=== PATIENT | male | born 1970 | race Two or more races ===

== ENCOUNTER 2020-12-20 15:01 | Inpatient (IN) | payer MEDICAID, OTHER ==
[~2020-12-20] VITALS: Ht 165.1 cm; Wt 77.6 kg
[2020-12-20 15:44] LABS: Basophils # (auto) 0.1 10 ^3/uL (0-0.2); Basophils % (auto) 0.9 % (0.0-2.0); Eosinophils # (auto) 0.1 10 ^3/uL (0-0.8); Eosinophils % (auto) 1.5 % (0.0-7.0); Hematocrit 46.9 % (41.0-53.0); Hemoglobin 16.5 g/dL (13.5-17.5); Lymphocytes # (auto) 2.1 10 ^3/uL (0.4-5.4); Lymphocytes % (auto) 23.6 % (10.0-50.0); Mean Corpuscular Hemoglobin 31.6 pg (28.0-32.0); Mean Corpuscular Hgb Conc. 35.1 g/dL (32.0-36.0); Monocytes # (auto) 0.7 10 ^3/uL (0-1.3); Monocytes % (auto) 7.6 % (0.0-12.0); Neutrophils # (auto) 5.8 10 ^3/uL (1.6-8.6); Neutrophils % (auto) 66.4 % (37.0-80.0); Nucleated Red Blood Cells % 0.1 %; Platelet Count (auto) 208 10^3/uL (140-450); Red Blood Cells 5.22 10^6/uL (4.5-5.90); Red Cell Distribution Width 14.7 % (11.8-14.3); White Blood Cell 8.7 10^3/uL (4.4-10.8)
[2020-12-20 15:55] LABS: Albumin 4.3 g/dL (3.4-5.0); Anion Gap 13 (5-15); Blood Alcohol < 3.0 mg/dL (0-5); Blood Urea Nitrogen 14 mg/dL (7-18); Calcium 9.7 mg/dL (8.5-10.1); Carbon Dioxide 22 mmol/L (21-32); Chloride 99 mmol/L (98-107); Glucose 291 mg/dL (74-106); Potassium 3.5 mmol/L (3.5-5.1); Sodium 134 mmol/L (136-145)
[2020-12-20 15:58] LABS: Alanine Aminotransferase 27 U/L (16-61); Alkaline Phosphatase 97 U/L (45-117); Aspartate Aminotransferase 25 U/L (15-37); BUN/Creatinine Ratio 16.9; Bilirubin, Total 0.8 mg/dL (0.2-1.0); GFR African American 125 mL/min; GFR Non-African American 103 mL/min; Total Protein 8.3 g/dL (6.4-8.2)
[2020-12-20 17:11] LABS: Urine Bacteria NONE SEEN /hpf (None Seen); Urine Blood Negative /uL (Negative); Urine Specific Gravity 1.011 (1.001-1.035); Urine WBC 1 /hpf (0 - 3)
[2020-12-20] MEDS ORDERED: SODIUM CHLORIDE 0.9% 1,000 ML IV ONE (17:30)
[2020-12-20 17:40] LABS: Amphetamine Screen, Urine POSITIVE (NEGATIVE); Barbiturate Scree,Urine NEGATIVE (NEGATIVE); Benzodiazephine Screen, Urine NEGATIVE (NEGATIVE); Cannabinoid Screen, Urine POSITIVE (NEGATIVE); Cocaine Screen, Urine NEGATIVE (NEGATIVE); Opiate Scree,Urine NEGATIVE (NEGATIVE); Phencyclidine Screen, Urine NEGATIVE (NEGATIVE)
[2020-12-20 18:00] LABS: Lactic Acid w/Reflex 3.7 mmol/L (0.4-2.0)
[2020-12-20] MEDS ORDERED: NITROGLYCERIN 0.4 MG SL TAB SL PRN (22:15)
[2020-12-20] MEDS ORDERED: MORPHINE SULF INJ 2 MG/ML SYRINGE 1ML IV PRN (22:15)
[2020-12-20] MEDS ORDERED: ONDANSETRON HCL 4 MG/2 ML VIAL IV PRN (22:15)
[2020-12-20] MEDS ORDERED: ACETAMINOPHEN 325 MG TAB PO PRN (22:15)
[2020-12-20] MEDS ORDERED: diphenhdrAMINE HCL 50 MG/1 ML VL IV PRN (22:15)
[2020-12-20] MEDS ORDERED: DOCUSATE SOD 100 MG CAP PO PRN (22:15)
[2020-12-20] MEDS ORDERED: MORPHINE SULFATE 4 MG/ML SYR/VIAL IV PRN (22:15)
[2020-12-20] MEDS ORDERED: hydrALAZINE HCL 20 MG/ML VL IV PRN (22:15)
[2020-12-20] MEDS ORDERED: DEXTROSE (50%) 50ML SYRG IV PRN (22:15)
[2020-12-20] MEDS ORDERED: HYDROcodone-ACET 5/325MG TAB PO PRN (22:15)
[2020-12-20] MEDS ORDERED: methylPREDNISolone SOD SUCC 40 MG/ML VL ONE (22:42)
[2020-12-20] MEDS: SODIUM CHLORIDE 0.9% 1,000 ML IV SCH (22:50)
[2020-12-21] MEDS: ACCU-CHEK COMFORT CURVE STRIP VI SCH ×4 (00:04→12:26)
[2020-12-21] MEDS: InsuLIN REG 1unit/0.01ml Soln (100units/ml) SC SCH ×4 (00:04→12:33)
[2020-12-21 00:40] VITALS: BP 116/78
[2020-12-21] MEDS ORDERED: METF-370 PO (01:04)
[2020-12-21 05:00] VITALS: BP 101/62
[2020-12-21 06:25] LABS: Basophils # (auto) 0 10 ^3/uL (0-0.2); Basophils % (auto) 0.3 % (0.0-2.0); Eosinophils # (auto) 0 10 ^3/uL (0-0.8); Eosinophils % (auto) 0.1 % (0.0-7.0); Hematocrit 44.8 % (41.0-53.0); Hemoglobin 15.8 g/dL (13.5-17.5); Lymphocytes # (auto) 0.7 10 ^3/uL (0.4-5.4); Lymphocytes % (auto) 9.7 % (10.0-50.0); Mean Corpuscular Hemoglobin 31.9 pg (28.0-32.0); Mean Corpuscular Hgb Conc. 35.4 g/dL (32.0-36.0); Mean Corpuscular Volume 90.3 fL (80.0-100.0); Monocytes # (auto) 0.1 10 ^3/uL (0-1.3); Monocytes % (auto) 1.7 % (0.0-12.0); Neutrophils # (auto) 6.1 10 ^3/uL (1.6-8.6); Neutrophils % (auto) 88.2 % (37.0-80.0); Platelet Count (auto) 205 10^3/uL (140-450); Red Blood Cells 4.96 10^6/uL (4.5-5.90); Red Cell Distribution Width 14.9 % (11.8-14.3)
[2020-12-21 06:42] LABS: Potassium 4.1 mmol/L (3.5-5.1)
[2020-12-21 06:59] LABS: Albumin 3.7 g/dL (3.4-5.0); BUN/Creatinine Ratio 20.6; Total Protein 7.5 g/dL (6.4-8.2)
[2020-12-21] MEDS ORDERED: INSULIN LANTUS (GLARGINE) 1 /0.01ml (100units/ml) SC SCH (07:00)
[2020-12-21 08:49] VITALS: BP 122/78
[2020-12-21] MEDS ORDERED: FAMOTIDINE 20 MG TAB PO SCH (10:00)
[2020-12-21] MEDS ORDERED: methylPREDNISolone SOD SUCC 40 MG/ML VL IV SCH (10:00)
[2020-12-21] MEDS ORDERED: ZINC SULFATE 220mg CAP or TAB PO SCH (10:00)
[2020-12-21] MEDS ORDERED: ASCORBIC ACID 500 MG TAB PO SCH (10:00)
[2020-12-21] MEDS ORDERED: MULTIPLE VITAMIN TAB PO SCH (10:00)
[2020-12-21] MEDS ORDERED: ENOXAPARIN SOD 40 MG/0.4 ML SYRINGE SC SCH (10:00)
[2020-12-21] MEDS: SODIUM CHLORIDE 0.9% 1,000 ML IV SCH (12:33)
[2020-12-21 12:42] VITALS: BP 109/65
[2020-12-21 13:30] VITALS: BP 109/65
== END 2020-12-21 14:50 | disposition home or self-care (01) | DRG 816 ==
LOC: ER 15:01 → TELE 22:01 → TELE-EAST 23:25
PROVIDERS: ADMIT Nurse Practitioner Family; ATTEND Internal Medicine
DX: T63.481A Toxic effect of venom of other arthropod, accidental (unintentional), initial encounter (principal); U07.1 COVID-19; G92 Toxic encephalopathy; E11.65 Type 2 diabetes mellitus with hyperglycemia; E87.2 Acidosis; I10 Essential (primary) hypertension; Y92.89 Other specified places as the place of occurrence of the external cause
CPT/HCPCS: 36415; 70450; 71045; 80053; 80307; 80320; 81001; 82962; 83036; 83605; 84443; 85025; 87426; 96361; 96374; G0378; J1815

== ENCOUNTER 2022-07-11 09:48 | Emergency (ER) | payer MEDICAID ==
[~2022-07-11] VITALS: Ht 165.1 cm; Wt 79.0 kg
[~2022-07-11 09:48] MED LIST: METF-370 PO
[2022-07-11] MEDS ORDERED: ACETAMINOPHEN 500 MG TAB PO ONE (12:00)
[2022-07-11] MEDS ORDERED: METF-370 PO (12:06)
[2022-07-11] MEDS ORDERED: PRED20TA2 PO (12:06)
[2022-07-11] MEDS ORDERED: IBUP600T28 PO (12:07)
[2022-07-11 13:09] VITALS: BP 129/81
== END 2022-07-11 13:17 | disposition home or self-care (01) ==
LOC: ER 09:48
DX: M79.662 Pain in left lower leg (principal); E11.9 Type 2 diabetes mellitus without complications
CPT/HCPCS: 72100

== ENCOUNTER 2022-09-16 09:33 | Emergency (ER) | payer MEDICAID ==
[~2022-09-16] VITALS: Ht 165.1 cm; Wt 78.1 kg
[~2022-09-16 09:33] MED LIST changes: +IBUP600T28 PO; +PRED20TA2 PO
[2022-09-16 09:50] VITALS: BP 129/78
[2022-09-16] MEDS ORDERED: IOHEXOL 300 MG/ML 100ML BOTTLE IJ ONE (10:39)
== END 2022-09-16 14:33 | disposition home or self-care (01) ==
LOC: ER 09:42
DX: S06.0X0A Concussion without loss of consciousness, initial encounter (principal); E11.9 Type 2 diabetes mellitus without complications; Z79.1 Long term (current) use of non-steroidal anti-inflammatories (NSAID); Z79.899 Other long term (current) drug therapy; W55.22XA Struck by cow, initial encounter; Y93.89 Activity, other specified; Y92.89 Other specified places as the place of occurrence of the external cause; Y99.8 Other external cause status
CPT/HCPCS: 70450; 70486; 71250; 72125; 93005

== ENCOUNTER 2024-10-20 09:14 | Emergency (ER) | payer MEDICAID ==
[~2024-10-20] VITALS: Ht 165.1 cm; Wt 75.1 kg
[~2024-10-20 09:14] MED LIST changes: +IBUP1TAB5 PO; -IBUP600T28 PO
--- NOTE | 2024-10-20 09:58 | ED.PDOC ---
History of Present Illness HPI Comments 53M who is macedonian speaking only, presents to the ER w/ no prior Hx associated to the c/c of flu-like symptoms. Pt reports on having an ongoing cough, and body aches. PMHx of DM. Denies chills, fever, N/V/D, SOB, CP or other associated symptoms, modifiers or recent injuries or sick contact at this time. Chief Complaint: Flu like Time Seen by MD: 09:25 Primary Care Provider: UNKNOWN Reviewed Notes: Nurses Notes, Medications, Allergies Allergies: Coded Allergies: No Known Drug Allergy (Verified Allergy, Unknown, 12/20/20) Home Meds Active Scripts Oseltamivir Phosphate (Tamiflu) 75 Mg Cap, 1 CAP PO BID, #10 CAP Prov:ASHLEY BREEN MD 10/20/24 Ibuprofen Micronized (Ibuprofen) 600 Mg Tab, 400 MG PO Q8HPRN PRN, #30 TAB 1 Refill Prov:DOTTIE NEIL [facility] 07/11/22 Prednisone (Prednisone) 20 Mg Tab, 40 MG PO DAILY for 5 Days, #10 MG Prov:DOTTIE NEIL [facility] 07/11/22 Metformin Hydrochloride (Metformin Hcl) 500 Mg Tab, 1 TAB PO BID, #60 TAB 3 Refills Prov:DOTTIE NEIL [facility] 07/11/22 Reported Medications Metformin Hydrochloride (Metformin Hcl) 500 Mg Tab, 1000 MG PO BID for 30 Days, MG 12/21/20 Information Source: Patient Mode of Arrival: Ambulatory Severity: Moderate Timing: Hours Duration: Since onset, Hours Prehospital treatment: None Past Medical History PAST MEDICAL HISTORY: DM Surgical History: Denies all surgeries Family History Family History: Reviewed,noncontributory to illness, Unknown Social History Smoker: Non-Smoker Alcohol: Denies ETOH Use Drugs: Denies Drug Use Lives In: Home Constitutional: reports: others (Body Ache); denies: chills, diaphoresis, fatigue, fever, malaise, sweats, weakness EENTM: denies: blurred vision, double vision, ear bleeding, ear discharge, ear drainage, ear pain, ear ringing, eye pain, eye redness, hearing loss, mouth pain, mouth swelling, nasal discharge, nose bleeding, nose congestion, nose pa in, photophobia, tearing, throat pain, throat swelling, voice changes, others Respiratory: reports: cough; denies: hemoptysis, orthopnea, SOB at rest, shortness of breath, SOB with excertion, stridor, wheezing, others Cardiovascular: denies: chest pain, dizzy spells, diaphoresis, Dyspnea on exertion, edema, irregular heart beat, left arm pain, lightheadedness, palpitations, PND, syncope, others Gastrointestinal: denies: abdomen distended, abdominal pain, blood streaked bowels, constipated, diarrhea, dysphagia, difficulty swallowing, hematemesis, m derek, nausea, poor appetite, poor fluid intake, rectal bleeding, rectal pain, vomiting, others Genitourinary: denies: burning, dysuria, flank pain, frequency, hematuria, incontinence, penile discharge, penile sore, pain, testicle pain, testicle swelling, urgency, others Neurological: denies: dizziness, fainting, headache, left sided numbness, left sided weakness, numbness, paresthesia, pre-existing deficit, right sided numbness, right sided weakness, seizure, speech problems, tingling, tremors, weakness, others Musculoskeletal: denies: back pain, gout, joint pain, joint swelling, muscle pain, muscle stiffness, neck pain, others Integumetry: denies: bruises, change in color, change in hair/nails, dryness, laceration, lesions, lumps, rash, wounds, others Allergic/Immunocompromised: denies: Difficulty Healing, Frequent Infections, Hives, Itching, others Hematologic/Lymphatic: denies: anemia, blood clots, easy bleeding, easy bruising, swollen glands, others Endocrine: denies: excessive hunger, excessive sweating, excessive thirst, excessive urination, flushing, intolerance to cold, intolerance to heat, unexplained weight gain, unexplained weight loss, others Psychiatric: denies: anxiety, bipolar disorder, depression, hopeless, panic disorder, schizophrenia, sleepless, suicidal, others All Other Systems: Reviewed and Negative Physical Exam General Appearance: No Apparent Distress, Normal HEENT: Normal ENT Inspection, Pharynx Normal, TMs Normal Neck: Full Range of Motion, Non-Tender, Normal, Normal Inspection Respiratory: Chest Non-Tender, Lungs Clear, No Accessory Muscle Use, No Respiratory Distress, Normal Breath Sounds Cardiovascular: No Edema, No JVD, No Murmur, No Gallop, Normal Peripheral Pulses, Regular Rate/Rhythm Breast Exam: Deferred Gastrointestinal: No Organomegaly, Non Tender, No Pulsatile Mass, Normal Bowel Sounds, Soft Genitalia: Deferred Pelvic: Deferred Rectal: Deferred Extremities: No calf tenderness, Normal capillary refill, Normal inspection, Normal range of motion, Non-tender, No pedal edema Musculoskeletal : Apperance: Normal Neurologic: Alert, pharmacy helper II-XII nml as Tested, No Motor Deficits, Normal Affect, Normal Mood, No Sensory Deficits Cerebellar Function: Normal Reflexes: Normal Skin: Dry, Normal Color, Warm Lymphatic: No Adenopathy Was a procedure done? Was a procedure done?: No Differential Dx Considerations may include: Viral syndrome, COVID-19, strep throat, sore throat, influenza A, influenza B, RSV, pneumonia, other viral illness. X-Ray, Labs, Meds, VS Vital Signs Date Time Temp Pulse Resp B/P (MAP) Pulse Ox O2 Delivery O2 Flow Rate FiO2 10/20/24 10:20 84 18 98 Room Air 10/20/24 10:20 99.4 84 18 129/75 (93) 98 99.4 10/20/24 09:23 98.3 98 19 129/78 (95) 100 Lab Test 10/20/24 10:01 10/20/24 00:00 Range/Units Influenza Type A Antigen Positive Negative Influenza Type B Antigen Negative Negative Group A Streptococcus Rapid Negative SARS-CoV-2 Antigen (Rapid) Negative NEGATIVE Current Medications Medications (Trade) Dose Ordered Sig/Brit Route Start Time Stop Time Status Last Admin Acetaminophen (Tylenol Tablet Or Capsule) 1,000 mg ONCE ONCE PO 10/20/24 13:30 10/20/24 13:31 DC 10/20/24 13:29 Time of 1ST Reevaluation: 09:55 Reevaluation 1ST: Unchanged Patient Education/Counseling: Diagnosis, Treatment, Prognosis Family Education/Counseling: No Family Present Departure 1 Departure Time of Disposition: 13:02 Impression: Primary Impression: Influenza A Disposition: 01 HOME / SELF CARE / HOMELESS Condition: Stable Additional Instructions: Thank you for visiting our Emergency Room. I wish you full and complete recovery. Please follow the following instructions: 1. Take your medication bottles with you to EVERY DOCTOR'S VISIT (including your primary doctor). 2. Please follow up with your primary doctor in 2-3 days or sooner if symptoms do not improve. 3. Please read all the papers given to you at the time of the discharge so that you understand your condition better. 4. Please note that the emergency room visits are focused and not necessarily comprehensive. Therefore, it is possible that some occult medical conditions may go undiagnosed in the ER. 5. The emergency room visits are not and should not be thought of as replacement for regular visits with your primary doctor. 6. Therefore, it is absolutely critical that you follows up with your primary doctor on regular basis to make sure you receives a complete and comprehensive care. 7. I recommended the you take the hospital discharge papers to your primary care physician and other doctors' offices with you. 8. Go to your nearest emergency room if you think your condition gets worse or you think your condition is an emergency. e-Prescriptions Oseltamivir Phosphate (Tamiflu) 75 Mg Cap 1 CAP PO BID, #10 CAP Prov: ASHLEY BREEN MD 10/20/24 Discharged With: Self Critical Care Note Critical Care Time?: No Stability Stability form required: No I personally scribed for ASHLEY BREEN MD ([email or web address]) on 10/20/24 at 09:58. Electronically submitted by Carroll Sahni ([email or web address]). ASHLEY BREEN MD Oct 20, 2024 09:58
[2024-10-20 10:20] VITALS: BP 129/75; PULSE 84; RESP 18; TEMP 99.4; O2SAT 98
--- NOTE | 2024-10-20 11:03 | DVH ---
CHEST RADIOGRAPH Indication: sob Technique: Single frontal view of the chest was obtained COMPARISON: CHEST PORTABLE on DOS: 12/20/20 FINDINGS: Lines and Tubes: None Lungs: Clear Pleura: No effusion. No pneumothorax. Cardiomediastinal contours: Unremarkable Bones: Unremarkable IMPRESSION: No acute disease.
[2024-10-20 11:33] LABS: Rapid Strep A Screen-Throat Negative
[2024-10-20 11:45] LABS: COVID19 ANTIGEN SOFIA FIA NEGATIVE (NEGATIVE)
[2024-10-20 12:05] LABS: Rapid Influenza B Negative (Negative)
[2024-10-20 12:10] LABS: Rapid Influenza A Positive (Negative)
[2024-10-20] MEDS ORDERED: OSEL75CA5 PO (13:05)
[2024-10-20] MEDS: ACETAMINOPHEN 500 MG TAB or CAP PO ONE (13:29)
[2024-10-20] MEDS: ACETAMINOPHEN 325 MG TAB PO ONE (13:29)
== END 2024-10-20 13:33 | disposition home or self-care (01) ==
LOC: ER 09:14
DX: J10.1 Influenza due to other identified influenza virus with other respiratory manifestations (principal); E11.9 Type 2 diabetes mellitus without complications; Z79.52 Long term (current) use of systemic steroids; Z79.84 Long term (current) use of oral hypoglycemic drugs; Z20.822 Contact with and (suspected) exposure to COVID-19
CPT/HCPCS: 36415; 71045; 87070; 87426; 87804; 87880

== ENCOUNTER 2025-09-25 05:02 | Inpatient (IN) | payer MEDICAID ==
[~2025-09-25] VITALS: Ht 165.1 cm; Wt 76.5 kg
[~2025-09-25 05:02] MED LIST changes: +OSEL75CA5 PO
[2025-09-25 06:44] LABS: Hematocrit 47.5 % (41.0-53.0); Hemoglobin 16.7 g/dL (13.5-17.5); Mean Corpuscular Hemoglobin 31.0 pg (28.0-32.0); Mean Corpuscular Volume 88.0 fL (80.0-100.0); Nucleated Red Blood Cells % 0.1 %
[2025-09-25 06:45] LABS: Chloride 107 mmol/L (98-107); Potassium 3.8 mmol/L (3.5-5.1); Sodium 139 mmol/L (136-145)
[2025-09-25 06:46] LABS: Anion Gap 11 (5-15); Calcium 9.7 mg/dL (8.7-10.4); Carbon Dioxide 21 mmol/L (20-31)
[2025-09-25 06:51] LABS: BUN/Creatinine Ratio 11.4 (10.0-20.0); Blood Urea Nitrogen 9 mg/dL (9-23); Glucose 247 mg/dL (74-106); Lipase 43 U/L (12-53)
--- NOTE | 2025-09-25 07:04 | ED.PDOC ---
GI ASSESSMENT HPI Comments 54 year old male presents to the ED for chief complaint of left abdomen pain. Pt states that he first felt the pain three days ago but has a PMHx of hernia repair 3 years ago. Pt in the ED describes that he feels bloated, has a loss of appetite, is experiencing frequent pass of gas and burping, as well as constipation. Pt's pain is constant, non-radiating, and notes no exacerbating factors. Pt is has taken OTC acetaminophen which has moderately relieved the pain. Pt denies associated symptoms of dizziness, fever, vomiting, or chills. Pt's blood pressure is elevated at 146/88, however vitals are otherwise stable at this time. Pt denies any other symptoms at this time. Chief Complaint: Abdominal Pain Time Seen by MD: 07:01 Primary Care Provider: UNKNOWN Reviewed Notes: Nurses Notes Allergies: Coded Allergies: No Known Drug Allergy (Verified Allergy, Unknown, 12/20/20) Home Meds Active Scripts Oseltamivir Phosphate (Tamiflu) 75 Mg Cap, 1 CAP PO BID, #10 CAP Prov:ASHLEY BREEN MD 10/20/24 Ibuprofen Micronized (Ibuprofen) 600 Mg Tab, 400 MG PO Q8HPRN PRN, #30 TAB 1 Refill Prov:DOTTIE NEIL [facility] 07/11/22 Prednisone (Prednisone) 20 Mg Tab, 40 MG PO DAILY for 5 Days, #10 MG Prov:DOTTIE NEIL [facility] 07/11/22 Metformin Hydrochloride (Metformin Hcl) 500 Mg Tab, 1 TAB PO BID, #60 TAB 3 Refills Prov:DOTTIE NEIL [facility] 07/11/22 Reported Medications Metformin Hydrochloride (Metformin Hcl) 500 Mg Tab, 1000 MG PO BID for 30 Days, MG 12/21/20 Information Source: Patient Mode of Arrival: Ambulatory Timing: Days Duration: Since onset Prehospital treatment: Pain Meds (Tylenol) Quality: Sharp Vomitus: None Severity: Moderate Recent: None Recent Hx of: None Pain Location: Diffuse, LLQ Modifying Factors: Nothing Associated sign and symptoms: Constipation, Abdominal Pain Past Medical History PAST MEDICAL HISTORY: DM Surgical History: Denies all surgeries Family History Family History: Reviewed,noncontributory to illness, Unknown Social History Smoker: Non-Smoker Alcohol: Denies ETOH Use Drugs: Denies Drug Use Lives In: Home Constitutional: denies: chills, diaphoresis, fatigue, fever, malaise, sweats, weakness, others EENTM: denies: blurred vision, double vision, ear bleeding, ear discharge, ear drainage, ear pain, ear ringing, eye pain, eye redness, hearing loss, mouth pain, mouth swelling, nasal discharge, nose bleeding, nose congestion, nose pain, photophobia, tearing, throat pain, throat swelling, voice changes, others Respiratory: denies: cough, hemoptysis, orthopnea, SOB at rest, shortness of breath, SOB with excertion, stridor, wheezing, others Cardiovascular: denies: chest pain, dizzy spells, diaphoresis, Dyspnea on exertion, edema, irregular heart beat, left arm pain, lightheadedness, palpitations, PND, syncope, others Gastrointestinal: reports: abdominal pain, constipated, poor appetite, others (bloating, dystension); denies: abdomen distended, blood streaked bowels, diarrhea, dysphagia, difficulty swallowing, hematemesis, melena, nausea, poor fluid intake, rectal bleeding, rectal pain, vomiting Genitourinary: denies: burning, dysuria, flank pain, frequency, hematuria, inco ntinence, penile discharge, penile sore, pain, testicle pain, testicle swelling, urgency, others Neurological: denies: dizziness, fainting, headache, left sided numbness, left sided weakness, numbness, paresthesia, pre-existing deficit, right sided numbness, right sided weakness, seizure, speech problems, tingling, tremors, weakness, others Musculoskeletal: denies: back pain, gout, joint pain, joint swelling, muscle pain, muscle stiffness, neck pain, others Integumetry: denies: bruises, change in color, change in hair/nails, dryness, laceration, lesions, lumps, rash, wounds, others Allergic/Immunocompromised: denies: Difficulty Healing, Frequent Infections, Hives, Itching, others Hematologic/Lymphatic: denies: anemia, blood clots, easy bleeding, easy bruising, swollen glands, others Endocrine: denies: excessive hunger, excessive sweating, excessive thirst, excessive urination, flushing, intolerance to cold, intolerance to heat, unexplained weight gain, unexplained weight loss, others Psychiatric: denies: anxiety, bipolar disorder, depression, hopeless, panic disorder, schizophrenia, sleepless, suicidal, others All Other Systems: Reviewed and Negative Physical Exam General Appearance: No Apparent Distress, Normal HEENT: Normal ENT Inspection, Pharynx Normal, TMs Normal Neck: Full Range of Motion, Non-Tender, Normal, Normal Inspection Respiratory: Chest Non-Tender, Lungs Clear, No Accessory Muscle Use, No Respiratory Distress, Normal Breath Sounds Cardiovascular: No Edema, No JVD, No Murmur, No Gallop, Normal Peripheral Pulses, Regular Rate/Rhythm Breast Exam: Deferred Gastrointestinal: Distended Genitalia: Deferred Pelvic: Deferred Rectal: Deferred Extremities: No calf tenderness, Normal capillary refill, Normal inspection, Normal range of motion, Non-tender, No pedal edema Neurologic: Alert, manager hematology II-XII nml as Tested, No Motor Deficits, Normal Affect, Normal Mood, No Sensory Deficits Cerebellar Function: Normal Reflexes: Normal Skin: Dry, Normal Color, Warm Lymphatic: No Adenopathy Was a procedure done? Was a procedure done?: No GI differential Dx Differential Diagnosis: Bowel Obstruction, Gastritis/PUD, Gastroenteritis, Dehydration, Electrolyte Imbalance X-Ray, Labs, Meds, VS Vital Signs Date Time Temp Pulse Resp B/P (MAP) Pulse Ox O2 Delivery O2 Flow Rate FiO2 09/25/25 08:01 97.7 79 18 128/87 (101) 99 97.7 09/25/25 05:04 97.9 89 18 146/88 96 97.9 Lab Test 09/25/25 06:19 Range/Units White Blood Count 8.7 4.4-10.8 10^3/uL Red Blood Count 5.40 4.5-5.90 10^6/uL Hemoglobin 16.7 13.5-17.5 g/dL Hematocrit 47.5 41.0-53.0 % Mean Corpuscular Volume 88.0 80.0-100.0 fL Mean Corpuscular Hemoglobin 31.0 28.0-32.0 pg Mean Corpuscular Hemoglobin Concent 35.2 32.0-36.0 g/dL Red Cell Distribution Width 13.7 11.8-14.3 % Platelet Count 197 140-450 10^3/uL Mean Platelet Volume 9.2 6.9-10.8 fL Neutrophils (%) (Auto) 68.4 37.0-80.0 % Lymphocytes (%) (Auto) 21.0 10.0-50.0 % Monocytes (%) (Auto) 8.4 0.0-12.0 % Eosinophils (%) (Auto) 1.7 0.0-7.0 % Basophils (%) (Auto) 0.5 0.0-2.0 % Neutrophils # (Auto) 6.0 1.6-8.6 10 ^3/uL Lymphocytes # (Auto) 1.8 0.4-5.4 10 ^3/uL Monocytes # (Auto) 0.7 0-1.3 10 ^3/uL Eosinophils # (Auto) 0.1 0-0.8 10 ^3/uL Basophils # (Auto) 0 0-0.2 10 ^3/uL Nucleated Red Blood Cells 0.1 % Sodium Level 139 136-145 mmol/L Potassium Level 3.8 3.5-5.1 mmol/L Chloride Level 107 98-107 mmol/L Carbon Dioxide Level 21 20-31 mmol/L Anion Gap 11 5-15 Blood Urea Nitrogen 9 9-23 mg/dL Creatinine 0.79 0.700-1.30 mg/dL Glomerular Filtration Rate Calc 104 >90 mL/min BUN/Creatinine Ratio 11.4 10.0-20.0 Serum Glucose 247 H 74-106 mg/dL Calcium Level 9.7 8.7-10.4 mg/dL Lipase 43 12-53 U/L [place] [id number] Ph: [phone] DIAGNOSTIC IMAGING Diagnostic Imaging Report : [id number] Signed PATIENT: JESSICA LOPEZ ACCT: [id number] UNIT: [id number] : 1970 LOC: ER ROOM / BED: / AGE / SEX: 54 / M ADM STATUS: REG ER SERVICE [id number] ORDERING PHYSICIAN: JUAN A CAGLE MD PROCEDURE(s): ABPLIV - CT AB PEL WITH IV CON ONLY REASON: abdominal pain ORDER NUMBER(s): [id number], ACCESSION NUMBER(s): [id number] CLINICAL INFORMATION: Abdominal pain. TECHNIQUE: Axial CT images of the abdomen and pelvis were obtained after the uneventful administration of 100 mL Omnipaque 300 IV contrast. Coronal and sag ittal reformatted images were obtained, reviewed, and stored. All CT scans at this medical facility are performed using dose modulation techniques as appropriate to a performed exam including the following: Automated exposure control was utilized; adjustment of the MA and/or KV according to patient size; and use of iterative reconstruction technique. CTDIvol = 8.96 mGy DLP = 556.5 mGy-cm COMPARISON: None FINDINGS: Lung bases: Respiratory motion artifact limits evaluation. Mild dependent atelectasis. Liver: Motion artifact limits evaluation. There is hepatic steatosis. Biliary: Very limited visualization of the gallbladder. No definite calcified gallstones visualized given the limitations of the exam. Spleen: Grossly unremarkable given the limitations of the exam. Pancreas: Poorly evaluated due to motion. Adrenal glands: Grossly unremarkable given the limitations of the exam. Kidneys: No hydronephrosis. Otherwise grossly unremarkable given the limitations of the exam. Aorta/Vascular: Scattered calcified atherosclerotic plaque. No abdominal aortic aneurysm. Lymph Nodes: No mass or lymphadenopathy. Bowel/mesentery: Nonspecific nondilated fluid-filled small bowel loops. No evidence for small bowel obstruction given the limitations of the exam. Appendix is not visualized. Likely moderate stool in the colon. Pelvic organs: Enlarged prostate with impression on the bladder base. Bladder: Unremarkable. No mass. Abdominal wall: No mass or hernia. Bones: No acute fracture or focal intraosseous lesion. IMPRESSION: 1. Very limited examination due to motion artifact. 2. Nonspecific nondilated fluid-filled small bowel loops. Findings may be seen with ileus or enteritis in the appropriate clinical setting. No small bowel obstruction visualized given the limitations of the exam. 3. Hepatic steatosis. 4. Enlarged prostate. ATED BY: KARLOS ELLIOTT DO DICTATED DATE/TIME: 09/25/25849 SIGNED BY: KARLOS ELLIOTT DO SIGNED DATE/TIME: 09/25/25849 CC: Time of 1ST Reevaluation: 07:31 Reevaluation 1ST: Unchanged Patient Education/Counseling: Diagnosis, Treatment, Prognosis Family Education/Counseling: No Family Present SEPSIS Sepsis Screen Date sepsis recognized/suspect: Sep 25, 2025 Time Sepsis recognized/suspect: 0507 Recent Procedure: No On Antibiotic Therapy: No Respiratory Rate >20: No Heart Rate >90: No Temp<36 C (96.8 F) or >38.3 C: No SBP <90 or MAP <65 mmHG: No New Acute Mental Status Change: No Is the patient on CPAP, BIPAP,: No Physician Orders Ct Ab Pel With Iv Con Only (09/25/25 06:41) Vital Signs Date Time Temp Pulse Resp B/P (MAP) Pulse Ox O2 Delivery O2 Flow Rate FiO2 09/25/25 08:01 97.7 79 18 128/87 (101) 99 97.7 09/25/25 05:04 97.9 89 18 146/88 96 97.9 Laboratory Tests Test 09/25/25 06:19 White Blood Count 8.7 10^3/uL (4.4-10.8) Departure 1 Departure Time of Disposition: 09:27 (Patient presented with abdominal pain that was concerning for possible appendicits, gastritis, cholecystitis, colitis, gastroenteritis, sbo, or orther possible surgical emergency. Data: 1. I ordered and reviewed the result of at least 3 labs including a CBC, BMP, and Urinalysis. 2. I independently interpreted the following tests: CT Abdomen and Pelvis is concerning for possible colitis .Risk:This patient has a high risk of morbidity due to further diagnostic testing or treatment and may suffer from an acute abdominal process disorder. Workup reveals intractable abdominal pain and patient should be admitted for further workup. and possible expert consultation. ) Impression: Primary Impression: Intractable abdominal pain Additional Impression: Generalized weakness Disposition: ADMITTED INPATIENT Admit to: Med Surg Condition: Guarded Critical Care Note Critical Care Time?: No Stability Stability form required: No Heart Score Heart Score: Heart Score Response (Comments) Value History N/A 0 EKG N/A 0 Age N/A 0 Risk Factors N/A 0 Troponin N/A 0 Total 0 I personally scribed for JUAN A CAGLE MD ([email or web address]) on 09/25/25 at 07:04. Electronically submitted by Louise Antonio ([email or web address]). I personally scribed for JUAN A CAGLE MD ([email or web address]) on 09/25/25 at 07:08. Electronically submitted by Rosalinda Carson ([email or web address]). I personally scribed for JUAN A CAGLE MD ([email or web address]) on 09/25/25 at 08:57. Electronically submitted by Rosalinda Carson ([email or web address]). JUAN A CAGLE MD Sep 25, 2025 07:04
[2025-09-25] MEDS: IOHEXOL 300 MG/ML 100ML BOTTLE IJ ONE (08:09)
--- NOTE | 2025-09-25 08:52 | DVH ---
CLINICAL INFORMATION: Abdominal pain. TECHNIQUE: Axial CT images of the abdomen and pelvis were obtained after the uneventful administration of 100 mL Omnipaque 300 IV contrast. Coronal and sagittal reformatted images were obtained, reviewed, and stored. All CT scans at this medical facility are performed using dose modulation techniques as appropriate to a performed exam including the following: Automated exposure control was utilized; adjustment of the MA and/or KV according to patient size; and use of iterative reconstruction technique. CTDIvol = 8.96 mGy DLP = 556.5 mGy-cm COMPARISON: None FINDINGS: Lung bases: Respiratory motion artifact limits evaluation. Mild dependent atelectasis. Liver: Motion artifact limits evaluation. There is hepatic steatosis. Biliary: Very limited visualization of the gallbladder. No definite calcified gallstones visualized given the limitations of the exam. Spleen: Grossly unremarkable given the limitations of the exam. Pancreas: Poorly evaluated due to motion. Adrenal glands: Grossly unremarkable given the limitations of the exam. Kidneys: No hydronephrosis. Otherwise grossly unremarkable given the limitations of the exam. Aorta/Vascular: Scattered calcified atherosclerotic plaque. No abdominal aortic aneurysm. Lymph Nodes: No mass or lymphadenopathy. Bowel/mesentery: Nonspecific nondilated fluid-filled small bowel loops. No evidence for small bowel obstruction given the limitations of the exam. Appendix is not visualized. Likely moderate stool in the colon. Pelvic organs: Enlarged prostate with impression on the bladder base. Bladder: Unremarkable. No mass. Abdominal wall: No mass or hernia. Bones: No acute fracture or focal intraosseous lesion. IMPRESSION: 1. Very limited examination due to motion artifact. 2. Nonspecific nondilated fluid-filled small bowel loops. Findings may be seen with ileus or enteritis in the appropriate clinical setting. No small bowel obstruction visualized given the limitations of the exam. 3. Hepatic steatosis. 4. Enlarged prostate.
--- NOTE | 2025-09-25 09:36 | DVHHP2 ---
History of Present Illness Reason for Visit: abd pain History of Present Illness 51-year-old male with a past medical history significant for type 2 diabetes mellitus and hyperlipidemia, who presents with left lower quadrant abdominal pain for the past three days. The pain is described as a persistent discomfort associated with a sensation of abdominal bloating and fullness. He denies fever, chills, nausea, vomiting, diarrhea, melena, hematochezia, chest pain, or tearing/ripping pain. He reports constipation but no prior similar episodes. The patient is particularly concerned given a family history of cancer, including colon cancer, though he denies any personal history of malignancy and has no prior abdominal surgeries. He denies recent weight loss or night sweats. In the emergency department, laboratory evaluation revealed elevated blood glucose (247), with otherwise unremarkable CBC and CMP. CT scan of the abdomen and pelvis demonstrated diverticulosis without evidence of diverticulitis, no bowel obstruction, no appendicitis, enlarged prostate, and hepatic steatosis, without acute intra-abdominal pathology but found to have enteritis. The patient endorses marijuana use but denies other illicit drug use. He is admitted for symptom management, pt will admit for iv antibiotics. Past Medical History See HPI above Past Surgical History See HPI above Family History Reviewed, non-contributory to the management of this case. Past Social History Does smoke marijuana and cigarettes denies drug use or alcohol use Review of Systems Constitutional: No: Fever, Chills, Sweats, Weakness, Malaise, Other Eyes: No: Pain, Vision change, Conjunctivae inflammation, Eyelid inflammation, Other, Redness ENT: No: Ear pain, Ear discharge, Nose pain, Nose discharge, Nose congestion, Mouth pain, Mouth swelling, Throat pain, Throat swelling, Other Respiratory: No: Cough, Dry, Shortness of breath, SOB with excertion, Wheezing, Hemoptysis, Pleuritic Pain, Sputum, Wheezing, Other Cardiovascular: No: Chest Pain, Palpitations, Orthopnea, Paroxysmal Noc. Dyspnea, Edema, Lt Headedness, Other Gastrointestinal: Abdominal Pain; No: Nausea, Vomiting, Diarrhea, Constipation, Melena, Hematochezia, Other Genitourinary: No Dysuria, No Frequency, No Incontinence, No Hematuria, No Retention, No Other Musculoskeletal: No: other, neck pain, shoulder pain, arm pain, back pain, hand pain, leg pain, foot pain Skin: No: Rash, Lesions, Jaundice, Bruising, Other Neurological: No: Weakness, Numbness, Incoordination, Change in speech, Confusion, Seizures, Other Allergies: Coded Allergies: No Known Drug Allergy (Verified Allergy, Unknown, 12/20/20) Exam Vital Signs Vital Signs Date Time Temp Pulse Resp B/P (MAP) Pulse Ox O2 Delivery O2 Flow Rate FiO2 09/25/25 08:01 97.7 79 18 128/87 (101) 99 97.7 General Appearance: Alert, Oriented X3, Cooperative, No acute distress HEENT: Atraumatic, PERRLA, EOMI, Mucous membr. moist/pink Respiratory: Clear to auscultation, Normal air movement Cardiovascular: Regular rate, Normal S1, Normal S2, No murmurs Abdominal: Normal bowel sounds, Soft, Other (No guarding and rebound tenderness) Extremities: No clubbing, No cyanosis, No edema, Normal pulses, No tenderness/swelling Skin: No rashes, No breakdown, No significant lesion Neuro: Normal gait, Normal speech, Strength at 5/5 X4 ext, Normal tone, Sensation intact, Cranial nerves 3-12 NL Psych/Mental Status: Mental status NL, Mood NL Labs/Xrays CT scan abdomen pelvis shows acute enteritis no bowel obstruction I reviewed labs, imaging CT scan abdomen pelvis, EKG and all diagnostic studies on this patient from ED records and the medical chart Labs Test 09/25/25 06:19 Range/Units White Blood Count 8.7 4.4-10.8 10^3/uL Red Blood Count 5.40 4.5-5.90 10^6/uL Hemoglobin 16.7 13.5-17.5 g/dL Hematocrit 47.5 41.0-53.0 % Mean Corpuscular Volume 88.0 80.0-100.0 fL Mean Corpuscular Hemoglobin 31.0 28.0-32.0 pg Mean Corpuscular Hemoglobin Concent 35.2 32.0-36.0 g/dL Red Cell Distribution Width 13.7 11.8-14.3 % Platelet Count 197 140-450 10^3/uL Mean Platelet Volume 9.2 6.9-10.8 fL Neutrophils (%) (Auto) 68.4 37.0-80.0 % Lymphocytes (%) (Auto) 21.0 10.0-50.0 % Monocytes (%) (Auto) 8.4 0.0-12.0 % Eosinophils (%) (Auto) 1.7 0.0-7.0 % Basophils (%) (Auto) 0.5 0.0-2.0 % Neutrophils # (Auto) 6.0 1.6-8.6 10 ^3/uL Lymphocytes # (Auto) 1.8 0.4-5.4 10 ^3/uL Monocytes # (Auto) 0.7 0-1.3 10 ^3/uL Eosinophils # (Auto) 0.1 0-0.8 10 ^3/uL Basophils # (Auto) 0 0-0.2 10 ^3/uL Nucleated Red Blood Cells 0.1 % Sodium Level 139 136-145 mmol/L Potassium Level 3.8 3.5-5.1 mmol/L Chloride Level 107 98-107 mmol/L Carbon Dioxide Level 21 20-31 mmol/L Anion Gap 11 5-15 Blood Urea Nitrogen 9 9-23 mg/dL Creatinine 0.79 0.700-1.30 mg/dL Glomerular Filtration Rate Calc 104 >90 mL/min BUN/Creatinine Ratio 11.4 10.0-20.0 Serum Glucose 247 H 74-106 mg/dL Calcium Level 9.7 8.7-10.4 mg/dL Lipase 43 12-53 U/L SEPSIS Sepsis Screen Date sepsis recognized/suspect: Sep 25, 2025 Time Sepsis recognized/suspect: 0507 Recent Procedure: No On Antibiotic Therapy: No Respiratory Rate >20: No Heart Rate >90: No Temp<36 C (96.8 F) or >38.3 C: No SBP <90 or MAP <65 mmHG: No New Acute Mental Status Change: No Is the patient on CPAP, BIPAP,: No Physician Orders Ct Ab Pel With Iv Con Only (09/25/25 06:41) Admit (09/25/25 09:31) Allergies (09/25/25 09:31) Code Status (09/25/25 09:31) 0.9% Ns 1000 Ml (09/25/25 09:45) Oxygen Per Hour (09/25/25 09:31) Ondansetron Hcl (Zofran) (09/25/25 09:45) Docusate Sodium Capsule (Colace Capsule) (09/25/25 09:45) Complete Blood Count (09/26/25 04:00) Comprehensive Metabolic Panel (09/26/25 04:00) Condition: Stable (09/25/25 09:31) Clear Liq Diet (09/25/25 Lunch) BRP (09/25/25 09:31) Morphine Sulfate Injection (09/25/25 09:45) Sequential Compression Device (09/25/25 ) Nitroglycerin Sublingual (Ntrostat Subli (09/25/25 09:45) Stat Ekg For Chest Pain (09/25/25 09:31) Notify Md Of Changes From Base (09/25/25 09:31) Motors And Controls Tester For 24 Hours (09/25/25 09:31) Emergency Dysrhythmia Protocol (09/25/25:31) Rhythm Strips Once Every Shift (09/25/25:31) Oxygen By Nasal Cannula (09/25/25:31) Ceftriaxone Ivpb Rocephin (09/26/25 09:00) Vital Signs Date Time Temp Pulse Resp B/P (MAP) Pulse Ox O2 Delivery O2 Flow Rate FiO2 09/25/25 08:01 97.7 79 18 128/87 (101) 99 97.7 09/25/25 05:04 97.9 89 18 146/88 96 97.9 Laboratory Tests Test 09/25/25 06:19 White Blood Count 8.7 10^3/uL (4.4-10.8) Assessment/Plan Assessment/Plan 51-year-old male admitted for left lower quadrant abdominal pain with bloating and constipation, in the setting of diverticulosis and metabolic comorbidities, requiring inpatient evaluation and symptom management. acute Left lower quadrant abdominal pain acute enteritis vs early ileus CT abdomen/pelvis shows enteritis vs ileus No bowel obstruction or appendicitis Monitor abdominal exam ordered morphine as needed for Pain Bowel regimen for constipation miralax GI consult if symptoms worsen or fail to improve ordered clr liquid for now acute Constipation Start miralax Encourage hydration Type 2 diabetes mellitus with hyperglycemia Glucose 247 Accu-checks/Sliding-scale insulin while inpatient chronic problems Hyperlipidemia Chronic Hepatic steatosis Incidental CT finding [employer] on lifestyle modification Enlarged prostate Incidental CT finding/Monitor urinary symptoms/Outpatient urology follow-up Marijuana use [employer] on abstinence FEN / PPx Fluids: hl ivf Electrolytes: Monitor BMP Nutrition: clr liquid DVT Prophylaxis: SCDs GI Prophylaxis: protonix Disposition Admit to medicine service for observation, abdominal pain management, bowel regimen initiation, and metabolic monitoring Plan discussed with: Patient (surinamese speaking ) My Orders Orders - ROGER CABRAL DNP Procedure Category Date Status Time Admit ADMIT 09/25/25 Verified 09:31 Allergies [facility] 09/25/25 Verified 09:31 Code Status CODE 09/25/25 Verified 09:31 0.9% Ns 1000 Ml PHA 09/25/25 Verified 09:45 Oxygen Per Hour RT 09/25/25 Verified 09:31 Ondansetron Hcl PHA 09/25/25 Verified (Zofran) 09:45 Docusate Sodium PHA 09/25/25 Verified Capsule (Colace 09:45 Complete Blood Count LAB 09/26/25 Verified 04:00 Comprehensive LAB 09/26/25 Verified Metabolic Panel 04:00 Condition: Stable [facility] 09/25/25 Verified 09:31 Clear Liq Diet DIET 09/25/25 Verified Lunch BRP [facility] 09/25/25 Verified 09:31 Morphine Sulfate PHA 09/25/25 Verified Injection 09:45 Sequential [facility] 09/25/25 Verified Compression Device Nitroglycerin [facility] 09/25/25 Verified Sublingual (Ntrostat 09:45 Stat Ekg For Chest [facility] 09/25/25 Verified Pain 09:31 Notify Md Of Changes [facility] 09/25/25 Verified From Base 09:31 [employer] Tester For [facility] 09/25/25 Verified 24 Hours 09:31 Emergency Dysrhythmia [facility] 09/25/25 Verified Protocol 09:31 Rhythm Strips Once [facility] 09/25/25 Verified Every Shift 09:31 Oxygen By Nasal RT 09/25/25 Verified Cannula 09:31 Ceftriaxone Ivpb [facility] 09/26/25 Verified Rocephin 09:00 Date of Service: Sep 25, 2025 Billing Provider: ROGER CABRAL DNP Common Visit Codes: [id number] INP/OBS CARE (HIGH) ROGER CABRAL DNP Sep 25, 2025 09:36
[2025-09-25] MEDS ORDERED: MORPHINE SULFATE INJ 2 MG/ml SYRG IV PRN (09:45)
[2025-09-25] MEDS ORDERED: NITROGLYCERIN 0.4 MG SL TAB SL PRN (09:45)
[2025-09-25] MEDS: SODIUM CHLORIDE 0.9% 1,000 ML IV SCH (09:45)
[2025-09-25] MEDS ORDERED: ONDANSETRON HCL 4 MG/2 ML VIAL IV PRN (09:45)
[2025-09-25] MEDS ORDERED: MORPHINE SULFATE 4 MG/ML SYR/VIAL IV PRN (10:00)
[2025-09-25 10:45] VITALS: BP 112/72; PULSE 68; RESP 17; TEMP 97.3; O2SAT 98
[2025-09-25] MEDS ORDERED: DEXTROSE (50%) 50ML SYRG IV PRN (10:45)
[2025-09-25] MEDS: PANTOPRAZOLE 40 MG/10 ML VIAL INJ IV ONE (12:18)
[2025-09-25] MEDS: ACCU-CHEK COMFORT CURVE STRIP VI SCH (12:39)
[2025-09-25 12:55] VITALS: PULSE 67; RESP 16; RESP 17; O2SAT 98
[2025-09-25] MEDS: InsuLIN REG 1unit/0.01ml Soln (100units/ml) SC SCH ×2 (12:56→21:47)
[2025-09-25] MEDS: POLYETHYLENE GLYCOL 17 GM PWDR PO ONE (15:53)
[2025-09-25 17:00] VITALS: BP 116/78; PULSE 64; RESP 17; TEMP 97.8; O2SAT 98
[2025-09-25 20:00] VITALS: PULSE 73; RESP 16; O2SAT 97
[2025-09-25 21:00] VITALS: BP 116/63; PULSE 73; RESP 16; TEMP 97.7; O2SAT 97
[2025-09-26] VITALS (8 sets, daily range): BP systolic 106–126; BP diastolic 63–81; PULSE 66–82; RESP 16–20; TEMP 97.9–98.8; O2SAT 95–99
[2025-09-26] MEDS: PANTOPRAZOLE 40 MG/10 ML VIAL INJ IV SCH (09:01)
[2025-09-26] MEDS: POLYETHYLENE GLYCOL 17 GM PWDR PO SCH (09:01)
[2025-09-26] MEDS: DOCUSATE SOD 100 MG CAP PO PRN (09:01)
[2025-09-26 10:39] LABS: Hematocrit 47.5 % (41.0-53.0); Hemoglobin 16.2 g/dL (13.5-17.5); Mean Corpuscular Hemoglobin 30.4 pg (28.0-32.0); Mean Corpuscular Volume 88.9 fL (80.0-100.0); Nucleated Red Blood Cells % 0.1 %
[2025-09-26 10:54] LABS: Alanine Aminotransferase 20 U/L (7-40); Albumin 4.4 g/dL (3.2-4.8); Anion Gap 11 (5-15); BUN/Creatinine Ratio 6.5 (10.0-20.0); Calcium 9.5 mg/dL (8.7-10.4); Carbon Dioxide 25 mmol/L (20-31); Chloride 104 mmol/L (98-107); Potassium 3.8 mmol/L (3.5-5.1); Sodium 140 mmol/L (136-145); Total Protein 7.1 g/dL (5.7-8.2)
[2025-09-26 10:55] LABS: Bilirubin, Total 1.0 mg/dL (0.2-1.0)
[2025-09-26 10:56] LABS: Alkaline Phosphatase 118 U/L (46-116); Blood Urea Nitrogen 6 mg/dL (9-23); Glucose 285 mg/dL (74-106)
--- NOTE | 2025-09-26 15:09 | DVHPN2 ---
Reviewed: Care Plan, H&P, Labs, Medications, Previous Orders Changes from previous H/P or p: No Changes General: Per HPI Eyes: No Pain, No Vision change, No Conjunctivae inflammation, No Eyelid inflammation, No Other, No Redness ENT: No Ear pain, No Ear discharge, No Nose pain, No Nose discharge, No Nose congestion, No Mouth pain, No Mouth swelling, No Throat pain, No Throat swelling, No Other Cardiovascular: No Chest Pain, No Palpitations, No Orthopnea, No Paroxysmal Noc. Dyspnea, No Edema, No Lt Headedness, No Other Respiratory: No Cough, No Dry, No Shortness of breath, No SOB with excertion, No Wheezing, No Hemoptysis, No Pleuritic Pain, No Sputum, No Other Gastrointestinal: No Nausea, No Vomiting; Abdominal Pain; No Diarrhea, No Constipation, No Melena, No Hematochezia, No Other Genitourinary: No Dysuria, No Frequency, No Incontinence, No Hematuria, No Retention, No Other Musculoskeletal: No other, No neck pain, No shoulder pain, No arm pain, No back pain, No hand pain, No leg pain, No foot pain Skin: No Rash, No Lesions, No Jaundice, No Bruising, No Other Objective Vitals Vital Signs Date Time Temp Pulse Resp B/P (MAP) Pulse Ox O2 Delivery O2 Flow Rate FiO2 09/26/25 13:11 98.8 66 20 126/66 (86) 95 98.8 09/26/25 08:00 Room Air* 0 21 Intake/Output Intake and Output 09/26/25 07:00 Intake Total 2120 ml Balance 2120 ml Intake Oral 820 ml IV Total 1300 ml # Voids 6 Medications Current Medications Medications Dose Ordered Sig/Brit Route Start Time Stop Time Status Last Admin Dose Admin Sodium Chloride 1,000 ml @ 120 mls/hr Q8H20M IV 09/25/25 09:45 09/26/25 12:55 120 MLS/HR Ondansetron HCl 4 mg Q4HP PRN IV 09/25/25 09:45 Docusate Sodium 100 mg BIDPRN PRN PO 09/25/25 09:45 09/26/25 09:01 100 MG Morphine Sulfate 2 mg Q4HPRN PRN IV 09/25/25 09:45 UNV Nitroglycerin 0.4 mg Q5MINP PRN SL 09/25/25 09:45 Ceftriaxone Sodium 50 ml @ 100 mls/hr DAILY@09 IV 09/26/25 09:00 09/26/25 09:01 100 MLS/HR Metronidazole 100 ml @ 100 mls/hr Q8H IV 09/25/25 18:00 09/26/25 09:57 100 MLS/HR Pantoprazole Sodium 40 mg DAILY IV 09/26/25 10:00 09/26/25 09:01 40 MG Morphine Sulfate 2 mg Q4HPRN PRN IV 09/25/25 10:00 Diagnostic Test (Pha) 1 strip ACHS 09/25/25 11:30 09/26/25 11:27 1 STRIP Insulin Human Regular HS SC 09/25/25 22:00 09/25/25 21:47 4 UNITS Insulin Human Regular AC SC 09/25/25 11:30 09/26/25 11:27 6 UNITS Dextrose 50 ml UD PRN IV 09/25/25 10:45 Polyethylene Glycol 17 gm DAILY PO 09/26/25 10:00 09/26/25 09:01 17 GM Laboratory Results Laboratory Tests 09/26/25 09:45 Chemistry Test 09/26/25 09:45 Albumin 4.4 g/dL (3.2-4.8) Calcium Level 9.5 mg/dL (8.7-10.4) Total Protein 7.1 g/dL (5.7-8.2) LFT Test 09/26/25 09:45 Alanine Aminotransferase (ALT) 20 U/L (7-40) Alkaline Phosphatase 118 U/L (46-116) H Aspartate Amino Transferase (AST) 18 U/L (13-40) Total Bilirubin 1.0 mg/dL (0.2-1.0) Assessment/Plan Assessment/Plan 51-year-old male admitted for left lower quadrant abdominal pain with bloating and constipation, in the setting of diverticulosis and metabolic comorbidities, requiring inpatient evaluation and symptom management. acute Left lower quadrant abdominal pain acute enteritis, bacterial gastroenteritis sepsis with gastroenteritis early ileus CT abdomen/pelvis shows enteritis vs ileus No bowel obstruction or appendicitis Monitor abdominal exam ordered morphine as needed for Pain Bowel regimen for constipation miralax GI consult if symptoms worsen or fail to improve advance diet as tolerated acute Constipation Start miralax Encourage hydration Type 2 diabetes mellitus with hyperglycemia Glucose 247 Accu-checks/Sliding-scale insulin while inpatient chronic problems Hyperlipidemia Chronic Hepatic steatosis Incidental CT finding [employer] on lifestyle modification Enlarged prostate Incidental CT finding/Monitor urinary symptoms/Outpatient urology follow-up Marijuana use [employer] on abstinence FEN / PPx Fluids: hl ivf Electrolytes: Monitor BMP Nutrition: clr liquid DVT Prophylaxis: SCDs GI Prophylaxis: protonix Plan discussed with: Patient Date of Service: Sep 26, 2025 Billing Provider: FREDERIC KATZ DO Common Visit Codes: [id number] INP/OBS CARE(HIGH) FREDERIC KATZ DO Sep 26, 2025 15:09
[2025-09-27 01:00] VITALS: BP 125/75; PULSE 64; RESP 14; TEMP 98.1; O2SAT 98
[2025-09-27 05:15] VITALS: BP 122/72; PULSE 76; RESP 16; TEMP 98; O2SAT 97
[2025-09-27 08:00] VITALS: PULSE 78; RESP 18; O2SAT 99
[2025-09-27 09:00] VITALS: BP 116/69; PULSE 75; RESP 18; TEMP 97.8; O2SAT 98
[2025-09-27] MEDS ORDERED: MET500T PO (10:37)
--- NOTE | 2025-09-27 10:40 | DVHDS2 ---
Discharge Summary Date of Admission Sep 25, 2025 at 09:31 Date of Discharge: Sep 27, 2025 Labs/Diagnostic Data: Laboratory Results Test 09/27/25 06:07 09/26/25 09:45 09/25/25 06:19 POC Glucose 185 mg/dl (70-106) White Blood Count 11.9 10^3/uL (4.4-10.8) Red Blood Count 5.34 10^6/uL (4.5-5.90) Hemoglobin 16.2 g/dL (13.5-17.5) Hematocrit 47.5 % (41.0-53.0) Mean Corpuscular Volume 88.9 fL (80.0-100.0) Mean Corpuscular Hemoglobin 30.4 pg (28.0-32.0) Mean Corpuscular Hemoglobin Concent 34.2 g/dL (32.0-36.0) Red Cell Distribution Width 13.7 % (11.8-14.3) Platelet Count 190 10^3/uL (140-450) Mean Platelet Volume 9.3 fL (6.9-10.8) Neutrophils (%) (Auto) 81.8 % (37.0-80.0) Lymphocytes (%) (Auto) 11.1 % (10.0-50.0) Monocytes (%) (Auto) 6.0 % (0.0-12.0) Eosinophils (%) (Auto) 0.7 % (0.0-7.0) Basophils (%) (Auto) 0.4 % (0.0-2.0) Neutrophils # (Auto) 9.7 10 ^3/uL (1.6-8.6) Lymphocytes # (Auto) 1.3 10 ^3/uL (0.4-5.4) Monocytes # (Auto) 0.7 10 ^3/uL (0-1.3) Eosinophils # (Auto) 0.1 10 ^3/uL (0-0.8) Basophils # (Auto) 0 10 ^3/uL (0-0.2) Nucleated Red Blood Cells 0.1 % Sodium Level 140 mmol/L (136-145) Potassium Level 3.8 mmol/L (3.5-5.1) Chloride Level 104 mmol/L (98-107) Carbon Dioxide Level 25 mmol/L (20-31) Anion Gap 11 (5-15) Blood Urea Nitrogen 6 mg/dL (9-23) Creatinine 0.92 mg/dL (0.700-1.30) Glomerular Filtration Rate Calc 98 mL/min (>90) BUN/Creatinine Ratio 6.5 (10.0-20.0) Serum Glucose 285 mg/dL (74-106) Calcium Level 9.5 mg/dL (8.7-10.4) Total Bilirubin 1.0 mg/dL (0.2-1.0) Aspartate Amino Transferase (AST) 18 U/L (13-40) Alanine Aminotransferase (ALT) 20 U/L (7-40) Alkaline Phosphatase 118 U/L (46-116) Total Protein 7.1 g/dL (5.7-8.2) Albumin 4.4 g/dL (3.2-4.8) Lipase 43 U/L (12-53) Other Laboratory Tests 09/26/25 09:45 Brief Hx & Hospital Course: 54-year-old male admitted for left lower quadrant abdominal pain with bloating and constipation, in the setting of diverticulosis and metabolic comorbidities, requiring inpatient evaluation and symptom management. acute Left lower quadrant abdominal pain acute enteritis, bacterial gastroenteritis sepsis with gastroenteritis early ileus CT abdomen/pelvis shows enteritis vs ileus No bowel obstruction or appendicitis Monitor abdominal exam ordered morphine as needed for Pain Bowel regimen for constipation miralax GI consult if symptoms worsen or fail to improve advance diet as tolerated acute Constipation Start miralax Encourage hydration Type 2 diabetes mellitus with hyperglycemia Glucose 247 Accu-checks/Sliding-scale insulin while inpatient chronic problems Hyperlipidemia Chronic Hepatic steatosis Incidental CT finding [employer] on lifestyle modification Enlarged prostate Incidental CT finding/Monitor urinary symptoms/Outpatient urology follow-up Marijuana use [employer] on abstinence FEN / PPx Fluids: hl ivf Electrolytes: Monitor BMP Nutrition: clr liquid DVT Prophylaxis: SCDs GI Prophylaxis: protonix Plan discussed with: Patient Condition at Discharge: Good Final Diagnosis/Problems List gastroenteriti Discharge Disposition: Home Discharge Instruct/Medications Diet: Cardiac 2g Na,low cholest Activity: No Restrictions, As Tolerated Scheduled Metformin Hydrochloride (Metformin Hcl), 1,000 MG PO BID, (Reported) Metformin Hydrochloride (Metformin Hcl), 1 TAB PO BID Metronidazole (Metronidazole), 500 MG PO TID Oseltamivir Phosphate (Tamiflu), 1 CAP PO BID Prednisone (Prednisone), 40 MG PO DAILY Scheduled PRN Ibuprofen Micronized (Ibuprofen), 400 MG PO Q8HPRN PRN Discharge Statement: "Patient was advised to return to the ER or call 911 if any headaches, dizziness, shortness of breath, chest pain, abdominal pain, bleeding, fevers, or worsening of medical condition. Patient was counseled about treatment plan, medications, possible side effects, patientverbalized understanding. All questions were answered to the best of my ability. This discharge took greater then 30 minutes in planning, reviewing documentation, counseling the patient, and discussing with other team members." ASSESSMENT ASSESSMENT Assessment Date of Service: Sep 27, 2025 Billing Provider: FREDERIC KATZ DO Common Visit Codes: [id number] DISCH DAY >30min FREDERIC KATZ DO Sep 27, 2025 10:40
[2025-09-27 11:52] VITALS: TEMP 36.6
== END 2025-09-27 13:25 | disposition home or self-care (01) | DRG 248 ==
LOC: ER 05:02 → OVERFLOW 09:31 → CENTRAL 10:41
PROVIDERS: ADMIT Internal Medicine; ATTEND Internal Medicine
DX: A04.9 Bacterial intestinal infection, unspecified (principal); K56.7 Ileus, unspecified; E11.65 Type 2 diabetes mellitus with hyperglycemia; K76.0 Fatty (change of) liver, not elsewhere classified; E78.5 Hyperlipidemia, unspecified; K59.00 Constipation, unspecified; N40.0 Benign prostatic hyperplasia without lower urinary tract symptoms; Z80.0 Family history of malignant neoplasm of digestive organs
CPT/HCPCS: 36415; 74177; 80048; 80053; 82962; 83690; 85025; 96365; 96375; G0378; J1815; J2470; J3490